=== PATIENT | female | born 2000 | race Two or more races ===

== ENCOUNTER 2020-01-21 11:21 | Emergency (ER) | payer OTHER ==
[~2020-01-21] VITALS: Ht 152.4 cm; Wt 56.7 kg
[2020-01-21 11:30] VITALS: BP 95/57
--- NOTE | 2020-01-21 11:30 | NUR ---
ED Nurse Note: Pt came in to ER for physical eval. Pt states she needs medical clearance for new occupation. Pt's AOX4, denies any pain or discomfort. VSS, on RA, NAD.
--- NOTE | 2020-01-21 11:38 | Emergency Room Report ---
History of Present Illness General Chief Complaint: General Complaint Source: Patient Present Illness HPI 19-year-old female no past medical history no surgical history presents for physical exam per her employer she has no complaints feels completely fine Allergies: Coded Allergies: No Known Allergies (Unverified , 01/21/20) Patient History Past Medical History: see triage record Last Menstrual Period: 01/11/2020 Reviewed Nursing Documentation: PMH: Agreed; PSxH: Agreed Nursing Documentation-PMH Past Medical History: No Stated History Review of Systems All Other Systems: negative except mentioned in HPI Physical Exam Vital Signs Date Time Temp Pulse Resp B/P (MAP) Pulse Ox O2 Delivery O2 Flow Rate FiO2 01/21/20 11:23 98.1 80 19 95/57 (70) 97 Room Air Sp02 EP Interpretation: reviewed, normal General Appearance: well appearing, no apparent distress, alert Head: normocephalic, atraumatic Eyes: bilateral eye PERRL, bilateral eye EOMI ENT: uvula midline, moist mucus membranes Neck: supple, thyroid normal, supple/symm/no masses Respiratory: lungs clear, no respiratory distress, no retraction, no accessory muscle use Cardiovascular #1: normal peripheral pulses, regular rate, rhythm, no edema, no gallop, no murmur Gastrointestinal: non tender, soft, no guarding, no rebound Musculoskeletal: normal inspection Neurologic: alert, oriented x3 Psychiatric: mood/affect normal Skin: no rash, warm/dry Medical Decision Making Diagnostic Impression: Primary Impression: Encounter for medical screening examination ER Course 19-year-old female presents for medical screening exam,/physical exam, patient is completely asymptomatic and without any complaints Patient deferred a test aware of the risks and benefits X-ray negative Patient is medically clear at this time Chest X-Ray Diagnostic Results Chest X-Ray Diagnostic Results : Chest X-Ray Ordered: Yes # of Views/Limited/Complete: 1 View Indication: Other - Preoperative EP Interpretation: Yes Interpretation: no consolidation, no effusion, no pneumothorax, no acute cardiopulmonary disease Impression: No acute disease Electronically Signed by: Damián Black MD Last Vital Signs Date Time Temp Pulse Resp B/P (MAP) Pulse Ox O2 Delivery O2 Flow Rate FiO2 01/21/20 11:23 98.1 80 19 95/57 (70) 97 Room Air Disposition: HOME, SELF-CARE Condition: Stable [facility] Patient Instructions: Medical Screening Exam Additional Instructions: The patient was provided with discharge instructions, notified to follow-up with a primary care doctor and or specialist in the next 24-48 hours, and to return to the ED if they have worsening of their symptoms. Please note that this report is being documented using DRAGON technology. This can lead to erroneous entry secondary to incorrect interpretation by the dictating instrument. Damián Black MD Jan 21, 2020 11:38
--- NOTE | 2020-01-21 11:51 | NUR ---
ED Nurse Note: X-ray done.
[2020-01-21 12:07] VITALS: BP 95/57
--- NOTE | 2020-01-21 12:07 | NUR ---
ER DISCHARGE NOTE: Patient is cleared to be discharged per ERMD, pt is aox4, on room air, with stable vital signs. pt was given dc and prescription instructions, pt was able to verbalize understanding, pt id band removed. pt is able to ambulate with steady gait. pt took all belongings.
--- NOTE | 2020-01-21 13:47 | Diagnostic Imaging Report ---
Indication: Cough Technique: One view of the chest Comparison: none Findings: Lungs and pleural spaces are clear. Heart size is normal. Impression: No acute process
== END 2020-01-21 12:07 | disposition home or self-care (01) ==
LOC: EMR 12:01
DX: Z00.00 Encounter for general adult medical examination without abnormal findings (principal); R05 Cough; Z01.818 Encounter for other preprocedural examination
CPT/HCPCS: 71045; 99281